=== PATIENT | female | born 1975 | race Two or more races ===

== ENCOUNTER 2022-04-03 12:18 | Inpatient (IN) | payer MEDICAID ==
[~2022-04-03] VITALS: Ht 160 cm; Wt 66.3 kg
[2022-04-03] MEDS ORDERED: FAMOTIDINE (10MG/ML) 2ML VL IV ONE (13:15)
[2022-04-03] MEDS ORDERED: SODIUM CHLORIDE 0.9% 1,000 ML IV ONE ×2 (13:15→14:45)
[2022-04-03] MEDS ORDERED: KETOROLAC TROMETH 30 MG/ML 1ML VIAL IV ONE (13:30)
[2022-04-03 13:42] LABS: Basophils # (auto) 0.2 10 ^3/uL (0-0.2); Basophils % (auto) 1.8 % (0.0-2.0); Eosinophils # (auto) 0.3 10 ^3/uL (0-0.8); Eosinophils % (auto) 2.7 % (0.0-7.0); Hematocrit 37.9 % (36.0-46.0); Hemoglobin 13.2 g/dL (12.2-16.2); Lymphocytes # (auto) 2.1 10 ^3/uL (0.4-5.4); Lymphocytes % (auto) 21.4 % (10.0-50.0); Mean Corpuscular Hemoglobin 32.4 pg (28.0-32.0); Mean Corpuscular Hgb Conc. 34.8 g/dL (32.0-36.0); Mean Corpuscular Volume 92.9 fL (80.0-100.0); Monocytes # (auto) 0.8 10 ^3/uL (0-1.3); Monocytes % (auto) 8.6 % (0.0-12.0); Neutrophils # (auto) 6.3 10 ^3/uL (1.6-8.6); Neutrophils % (auto) 65.5 % (37.0-80.0); Nucleated Red Blood Cells % 0.1 %; Red Blood Cells 4.08 10^6/uL (4.0-5.20); Red Cell Distribution Width 12.9 % (11.8-14.3); White Blood Cell 9.6 10^3/uL (4.4-10.8)
[2022-04-03 13:50] LABS: Albumin 3.6 g/dL (3.4-5.0); Anion Gap 6 (5-15); Blood Urea Nitrogen 12 mg/dL (7-18); Calcium 8.7 mg/dL (8.5-10.1); Carbon Dioxide 23 mmol/L (21-32); Chloride 109 mmol/L (98-107); Glucose 96 mg/dL (74-106); Potassium 3.9 mmol/L (3.5-5.1); Sodium 138 mmol/L (136-145)
[2022-04-03 13:58] LABS: Alkaline Phosphatase 127 U/L (45-117); Total Protein 7.8 g/dL (6.4-8.2)
[2022-04-03 14:37] LABS: Alanine Aminotransferase 146 U/L (13-56); Aspartate Aminotransferase 306 U/L (15-37); BUN/Creatinine Ratio 19.7; Bilirubin, Total 1.1 mg/dL (0.2-1.0); GFR African American 135 mL/min; GFR Non-African American 111 mL/min; Lipase > 1500 U/L (73-393)
[2022-04-03] MEDS ORDERED: MORPHINE SULFATE INJ 2 MG/ml SYRG IV PRN ×2 (16:30)
[2022-04-03] MEDS ORDERED: LACTATED RINGER'S 1,000 ML IV ONE (16:30)
[2022-04-03] MEDS ORDERED: NITROGLYCERIN 0.4 MG SL TAB SL PRN (16:30)
[2022-04-03] MEDS ORDERED: ONDANSETRON HCL 4 MG/2 ML VIAL IV PRN (16:30)
[2022-04-03 16:34] LABS: Urine Bacteria FEW /hpf (None Seen); Urine Blood 2+ /uL (Negative); Urine Specific Gravity 1.007 (1.001-1.035); Urine WBC 1 /hpf (0 - 5)
[2022-04-03 22:00] VITALS: BP 120/75
[2022-04-03 22:23] VITALS: BP 120/75
[2022-04-03] MEDS ORDERED: SERT-375 PO (22:29)
[2022-04-03] MEDS ORDERED: FAMO20TA10 PO (22:29)
[2022-04-04 05:00] VITALS: BP 135/57
[2022-04-04 07:41] LABS: Basophils # (auto) 0.1 10 ^3/uL (0-0.2); Basophils % (auto) 0.9 % (0.0-2.0); Eosinophils # (auto) 0.4 10 ^3/uL (0-0.8); Eosinophils % (auto) 4.7 % (0.0-7.0); Hematocrit 35.4 % (36.0-46.0); Hemoglobin 12.5 g/dL (12.2-16.2); Lymphocytes # (auto) 2.3 10 ^3/uL (0.4-5.4); Lymphocytes % (auto) 29.5 % (10.0-50.0); Mean Corpuscular Hemoglobin 32.8 pg (28.0-32.0); Mean Corpuscular Hgb Conc. 35.4 g/dL (32.0-36.0); Mean Corpuscular Volume 92.8 fL (80.0-100.0); Monocytes # (auto) 0.8 10 ^3/uL (0-1.3); Monocytes % (auto) 10.1 % (0.0-12.0); Neutrophils # (auto) 4.2 10 ^3/uL (1.6-8.6); Neutrophils % (auto) 54.8 % (37.0-80.0); Nucleated Red Blood Cells % 0.1 %; Red Blood Cells 3.81 10^6/uL (4.0-5.20); Red Cell Distribution Width 12.9 % (11.8-14.3); White Blood Cell 7.6 10^3/uL (4.4-10.8)
[2022-04-04] MEDS ORDERED: DOCUSATE SOD 100 MG CAP PO PRN (07:45)
[2022-04-04] MEDS ORDERED: MORPHINE SULFATE INJ 2 MG/ml SYRG IV PRN (07:45)
[2022-04-04] MEDS ORDERED: LORazepam 0.5 MG TAB PO PRN (07:45)
[2022-04-04] MEDS ORDERED: hydrALAZINE HCL 20 MG/ML VL IV PRN (07:45)
[2022-04-04 07:49] LABS: Potassium 3.8 mmol/L (3.5-5.1)
[2022-04-04 07:57] LABS: Albumin 2.9 g/dL (3.4-5.0); BUN/Creatinine Ratio 14.9; Bilirubin, Total 1.4 mg/dL (0.2-1.0); CRP High Sensitivity 0.2 mg/dL (< 0.3); Calcium 7.7 mg/dL (8.5-10.1); Magnesium 2.3 mg/dL (1.6-2.6); Phosphorus 2.9 mg/dL (2.5-4.90); Total Protein 6.7 g/dL (6.4-8.2); Uric Acid 3.6 mg/dL (2.6-6.0)
[2022-04-04 08:07] LABS: Thyroid Stimulating Hormone 2.13 uIU/mL (0.358-3.74)
[2022-04-04 08:57] LABS: INR 1.08 (0.9-1.15); Partial Thromboplastin Time 25.7 sec (23.6-33.0)
[2022-04-04 09:00] VITALS: BP 142/96
[2022-04-04] MEDS: SODIUM CHLORIDE 0.9% 1,000 ML IV SCH (09:28)
[2022-04-04] MEDS: levoFLOXacin 500MG 100 ML IV SCH (09:29)
[2022-04-04] MEDS: ENOXAPARIN SOD 40 MG/0.4 ML SYRINGE SC SCH (09:29)
[2022-04-04 09:53] LABS: Ferritin 69.4 ng/mL (10-322); Free T4 (Free Thyroxine) 0.92 ng/dL (0.89-1.76)
[2022-04-04] MEDS ORDERED: PANTOPRAZOLE 40 MG/10 ML VIAL INJ IV SCH (10:00)
[2022-04-04] MEDS ORDERED: FAMOTIDINE (10MG/ML) 2ML VL IV SCH (10:00)
[2022-04-04 10:03] LABS: Urine Bacteria FEW /hpf (None Seen); Urine Blood 2+ /uL (Negative); Urine Mucus FEW (None Seen); Urine WBC 24 /hpf (0 - 5)
[2022-04-04 10:13] LABS: Alcohol, Urine < 3.0 mg/dL (0-10); Amphetamine Screen, Urine NEGATIVE (NEGATIVE); Barbiturate Scree,Urine NEGATIVE (NEGATIVE); Benzodiazephine Screen, Urine NEGATIVE (NEGATIVE); Cannabinoid Screen, Urine NEGATIVE (NEGATIVE); Cocaine Screen, Urine NEGATIVE (NEGATIVE); Opiate Scree,Urine NEGATIVE (NEGATIVE); Phencyclidine Screen, Urine NEGATIVE (NEGATIVE); Protein, Urine 21.1 mg/dL (0.0-11.9)
[2022-04-04 11:17] LABS: Hepatitis A Ab IgM Negative; Hepatitis C Antibody Negative (Negative)
[2022-04-04] MEDS: metroNIDAZOLE 500MG/100ML 100 ML IV SCH ×2 (13:57→22:11)
[2022-04-04] MEDS: ONDANSETRON HCL 4 MG/2 ML VIAL IV PRN ×2 (14:03→22:12)
[2022-04-04 15:58] LABS: Hepatitis B Core IgM Negative
[2022-04-04 17:02] VITALS: BP 113/68
[2022-04-04] MEDS: PANTOPRAZOLE 40 MG TAB PO SCH (22:12)
[2022-04-04 22:55] VITALS: BP 118/70
[2022-04-05] MEDS: SODIUM CHLORIDE 0.9% 1,000 ML IV SCH (00:25)
[2022-04-05 05:18] VITALS: BP 101/55
[2022-04-05] MEDS: metroNIDAZOLE 500MG/100ML 100 ML IV SCH ×2 (05:30→14:03)
[2022-04-05 05:48] LABS: Basophils # (auto) 0 10 ^3/uL (0-0.2); Basophils % (auto) 0.8 % (0.0-2.0); Eosinophils # (auto) 0.3 10 ^3/uL (0-0.8); Eosinophils % (auto) 5.5 % (0.0-7.0); Hematocrit 32.5 % (36.0-46.0); Hemoglobin 11.6 g/dL (12.2-16.2); Lymphocytes # (auto) 2.1 10 ^3/uL (0.4-5.4); Lymphocytes % (auto) 36.5 % (10.0-50.0); Mean Corpuscular Hemoglobin 33.1 pg (28.0-32.0); Mean Corpuscular Hgb Conc. 35.8 g/dL (32.0-36.0); Mean Corpuscular Volume 92.5 fL (80.0-100.0); Monocytes # (auto) 0.7 10 ^3/uL (0-1.3); Monocytes % (auto) 11.3 % (0.0-12.0); Neutrophils # (auto) 2.7 10 ^3/uL (1.6-8.6); Neutrophils % (auto) 45.9 % (37.0-80.0); Nucleated Red Blood Cells % 0.1 %; Red Blood Cells 3.51 10^6/uL (4.0-5.20); White Blood Cell 5.8 10^3/uL (4.4-10.8)
[2022-04-05 05:49] LABS: Potassium 3.6 mmol/L (3.5-5.1)
[2022-04-05 05:59] LABS: BUN/Creatinine Ratio 11.3; Calcium 7.6 mg/dL (8.5-10.1)
[2022-04-05 08:00] VITALS: BP 103/62
[2022-04-05] MEDS ORDERED: LIDOCAINE VISCOUS 2% 15ML UD ONE (08:05)
[2022-04-05] MEDS ORDERED: SODIUM CHLORIDE LOCK 10 ML ONE (08:05)
[2022-04-05] MEDS ORDERED: diphenhdrAMINE HCL 50 MG/1 ML VL ONE (08:05)
[2022-04-05] MEDS: fentaNYL CITRATE 100 MCG/2 ML VL ONE ×2 (09:24→09:27)
[2022-04-05] MEDS: MIDAZOLAM HCL 5 MG/ML-1ML VIAL ONE ×2 (09:24→09:27)
[2022-04-05 09:36] LABS: Albumin 2.6 g/dL (3.4-5.0)
[2022-04-05 09:41] LABS: Bilirubin, Direct 0.2 mg/dL (0-0.2); Bilirubin, Total 0.6 mg/dL (0.2-1.0); Total Protein 6.2 g/dL (6.4-8.2)
[2022-04-05] MEDS: levoFLOXacin 500MG 100 ML IV SCH (10:51)
[2022-04-05] MEDS: PANTOPRAZOLE 40 MG TAB PO SCH (10:51)
[2022-04-05] MEDS: ENOXAPARIN SOD 40 MG/0.4 ML SYRINGE SC SCH (10:51)
[2022-04-05] MEDS ORDERED: PANT40T PO (12:14)
[2022-04-05] MEDS ORDERED: METR500T PO (12:15)
[2022-04-05] MEDS ORDERED: LEVO750T8 PO (12:15)
[2022-04-05 12:52] VITALS: BP 95/56
[2022-04-05 14:47] VITALS: BP 95/56
== END 2022-04-05 16:27 | disposition home or self-care (01) | DRG 241 ==
LOC: ER 12:18 → OVERFLOW 16:29 → WEST WING 20:15
PROVIDERS: ADMIT Hospitalist; ATTEND Internal Medicine Pulmonary Disease
PROC: 0DB68ZX Excision of Stomach, Via Natural or Artificial Opening Endoscopic, Diagnostic (ICD-10-PCS; principal; 2022-04-05 09:20)
DX: K29.70 Gastritis, unspecified, without bleeding (principal); D25.9 Leiomyoma of uterus, unspecified; N39.0 Urinary tract infection, site not specified; F32.9 Major depressive disorder, single episode, unspecified; K52.9 Noninfective gastroenteritis and colitis, unspecified; R74.8 Abnormal levels of other serum enzymes; Z20.822 Contact with and (suspected) exposure to COVID-19; F41.9 Anxiety disorder, unspecified; Z83.3 Family history of diabetes mellitus; Z90.49 Acquired absence of other specified parts of digestive tract; Z88.0 Allergy status to penicillin
CPT/HCPCS: 36415; 43239; 71045; 74176; 74181; 76705; 80048; 80053; 80061; 80074; 80076; 80307; 81001; 82550; 82728; 83036; 83615; 83690; 83735; 83880; 84100; 84156; 84439; 84443; 84484; 84550; 84702; 85025; 85379; 85610; 85652; 85730; 86038; 86141; 86301; 86850; 86900; 86901; 87040; 87086; 93005; 96361; 96374; 96375; G0378; J1885; J1956; J2250; J2405; J3490